=== PATIENT | female | born 1950 | race Caucasian/White ===

== ENCOUNTER → 2017-11-19 | Outpatient (REF) | payer MEDICARE ==
[2017-11-19 12:37] LABS: HEPATITIS B SURFACE ANTIBODY NEGATIVE (POSITIVE)
[2017-11-19 12:48] LABS: HEPATITIS B SURFACE ANTIGEN NEGATIVE (NEGATIVE)
[2017-11-19 13:17] LABS: HIV 1&2 SCREEN CENTAUR NEGATIVE (NEGATIVE)
[2017-11-21 00:07] LABS: HEPATITIS A IgG TOTAL Negative (Negative); HEPATITIS C QUANTITATION HCV Not Detected IU/mL (.)
== END ==
LOC: M SFHCPLAZ 09:43
DX: R76.8 Other specified abnormal immunological findings in serum (principal); F10.10 Alcohol abuse, uncomplicated; I10 Essential (primary) hypertension
CPT/HCPCS: 86706

== ENCOUNTER 2019-01-16 09:57 | Day surgery (SDC) | payer MEDICARE ==
[~2019-01-16] VITALS: Ht 157.5 cm; Wt 54.3 kg
[2019-01-16] VITALS (7 sets, daily range): BP systolic 122–140; BP diastolic 75–90
[~2019-01-16 09:57] MED LIST: ALPR0.25 PO; AMLO5CAP44 PO; BACL10TA2 PO; BUPR150T5 PO; BUSP15TA OR; CYMBALTA PO; DONE5TAB82 PO; ENAL10TA2 OR; GABA-1171 PO; LIDOCAINE 1% MDV 20ML VIAL SQ PRN; LR 1,000 ML IV ONE; MULTCAP PO; MULTIVIT PO; PANT40TA3 PO; PRIL40CA OR; QUET5TAB PO; SERT50TA29 PO; TRAZ150T OR; TRAZ150T90 PO; XANAX PO
[2019-01-16] MEDS ORDERED: fentaNYL 100 MCG/2 ML INJECTION (J3010) As Ordered ONE ×2 (11:06→13:16)
[2019-01-16] MEDS ORDERED: ONDANSETRON 4MG/2ML VIAL (J2405) As Ordered ONE (11:06)
[2019-01-16] MEDS ORDERED: MIDAZOLAM INJ 2 MG/2 ML VIAL (J2250) As Ordered ONE (11:06)
[2019-01-16] MEDS ORDERED: PROPOFOL 200 MG/20 ML VIAL As Ordered ONE ×2 (11:06→13:26)
[2019-01-16] MEDS ORDERED: LIDOCAINE 2% INJ 100 MG/5 ML SDV (FOR ANES.) As Ordered ONE (11:06)
[2019-01-16] MEDS ORDERED: ALBUTEROL SULFATE 2.5 MG/0.5 ML INH NEB SOLN As Ordered ONE (11:09)
[2019-01-16] MEDS ORDERED: ALBUTEROL SULFATE 2.5 MG/0.5 ML INH NEB SOLN INH ONE ×2 (11:30→14:15)
[2019-01-16] MEDS ORDERED: dexameTHASONE 4 MG/ML 1ML VIAL (J1100) As Ordered ONE (12:10)
[2019-01-16] MEDS ORDERED: ACETAMINOPHEN 1000MG 100ML IV BTL (OFIRMEV) (J0131 PER 10MG) As Ordered ONE (12:19)
[2019-01-16] MEDS ORDERED: KETOROLAC 60 MG/2 ML VIAL (J1885) As Ordered ONE (13:27)
[2019-01-16] MEDS ORDERED: ONDANSETRON 4MG/2ML VIAL (J2405) IV PRN (14:00)
[2019-01-16] MEDS ORDERED: LR 1,000 ML IV SCH (14:00)
[2019-01-16] MEDS ORDERED: fentaNYL 100 MCG/2 ML INJECTION (J3010) IV PRN (14:00)
[2019-01-16] MEDS ORDERED: oxyCODONE 5MG TAB PO PRN (14:00)
[2019-01-16] MEDS ORDERED: NORCO, ANEXSIA 5/325MG TABLET (HYDROcodone/ACETAMINOPHEN) PO PRN (14:00)
[2019-01-16] MEDS ORDERED: IBUPROFEN 600 MG TAB PO PRN (14:00)
[2019-01-16] MEDS: DONEPEZIL 5 MG TAB PO SCH (18:09)
[2019-01-16] MEDS: MULTIVITAMINS/MINERALS THERAP 1 TAB PO SCH (18:09)
[2019-01-16] MEDS: amLODIPine 5 MG TAB PO SCH (18:10)
[2019-01-16] MEDS: BENAZEPRIL 20 MG TAB PO SCH (18:10)
--- NOTE | 2019-01-16 18:23 | RO ---
DATE OF PROCEDURE: 01/16/2019 PREOPERATIVE DIAGNOSIS: Large vulvar lesion. POSTOPERATIVE DIAGNOSIS: Large vulvar lesion. PROCEDURE: Partial vulvectomy. SURGEON: Dr. Tiffany Dumont ELECTRICAL ENGINEERING MANAGER: None. ANESTHESIA: LMA. DESCRIPTION OF PROCEDURE: Shellie was brought to the operating room where sufficient LMA anesthesia was induced, and she was prepped, draped and positioned in the usual sterile fashion. Marker was used to brandon out the lesion, which obliterated the entire perineal body in this slightly built 68-year-old woman who already has some marked atrophic changes of the tissues and loss of caliber at the introitus. Having marked off the lesion over the perineal body with a rhomboid shape, we developed two modified rhomboid flaps, left and right so that we could take some of the tissue from the labia to take some of the pressure off this and not have too much tension on the repair. She did not have adequate tissue to just replace the tissue loss, and this is the entire perineal body and some of the posterior aspect of the labia involved in this lesion, and so we worked those rhomboid flaps so coming out from the rhomboid resection and working anteriorly to develop those flaps from the labial tissues. There really was not enough give in the buttock either because the lesion went almost all the way to the anal verge. We did angle a little bit forward rather than going straight out sideways because we did not want to take from the thighs, we needed to take from the labia. But then we resected the lesion in that rhomboid shape and dissected out the flaps, leaving a little of the underlying tissue for this patient. And then we did a modification of sort of a V-Y technique, so that we brought the perineal body closest to the anus together deeply with #3-0 to close and sort of resupport the perineal body, and redevelop this for this patient who has a fairly shortened perineal body anyway. And then brought those flaps over for the anterior aspect of this so that we would have a low tension repair using #3-0 in the skin and #2-0 Vicryl for that deep perineal body resupport. When we had the perineal body resupported and then swing those flaps over and had brought the corners in on the sides to close off where the flaps were removed, we had a low tension repair. I did some short segments of running closure and multiple interrupted stitch for most of the closure, making sure that we were secure to the vaginal tissues at the introitus and secure to the other tissues, and that we did not lose any more vaginal caliber in this still active individual. She is aware that she has to take a break from intercourse until this fully, fully heals as is her . Again, when we attacked the corners and brought those in, we had a low tension repair, we had good color on the flaps, and went ahead and closed the skin, again sort of in a modified Y shape along with that rhomboid aspect of the repair closer to the introitus. And we had good approximation and hemostasis, and then the procedure was ended. We did empty her bladder at the end of the case as well. Estimated blood loss for the procedure: Maybe 20 mL. Fluid replacement: Crystalloid. Complications: None. Condition and Disposition: Shellie tolerated the procedure well and was recovering in the recovery room in good condition.
[2019-01-16] MEDS: PANTOPRAZOLE 40MG TAB (PROTONIX) PO SCH (20:11)
[2019-01-16] MEDS: buPROPion **SR TABLET** (ZYBAN) 150MG PO SCH (20:11)
[2019-01-16] MEDS ORDERED: SERTRALINE HCL 50 MG TAB PO SCH (21:00)
[2019-01-16] MEDS ORDERED: BACLOFEN 10 MG TAB PO SCH (21:00)
[2019-01-16] MEDS ORDERED: QUEtiapine FUMARATE 50 MG TAB PO SCH (21:00)
[2019-01-16] MEDS ORDERED: traZODone 50 MG TAB PO SCH (21:00)
[2019-01-17 02:10] VITALS: BP 136/66
[2019-01-17 06:10] VITALS: BP 119/78
[2019-01-17] MEDS ORDERED: ADVI200T PO (09:04)
[2019-01-17] MEDS: PANTOPRAZOLE 40MG TAB (PROTONIX) PO SCH (09:08)
[2019-01-17] MEDS: MULTIVITAMINS/MINERALS THERAP 1 TAB PO SCH (09:08)
[2019-01-17] MEDS: buPROPion **SR TABLET** (ZYBAN) 150MG PO SCH (09:08)
[2019-01-17 09:09] VITALS: BP 138/84
[2019-01-17] MEDS: amLODIPine 5 MG TAB PO SCH (09:09)
[2019-01-17] MEDS: DONEPEZIL 5 MG TAB PO SCH (09:09)
[2019-01-17] MEDS: BENAZEPRIL 20 MG TAB PO SCH (09:09)
== END 2019-01-17 14:24 | disposition home or self-care (01) ==
LOC: M SDC 09:57 → M MSPAV 17:05 → M SDC 01-17 14:24
PROVIDERS: ATTEND Obstetrics & Gynecology
DX: D07.1 Carcinoma in situ of vulva (principal); I10 Essential (primary) hypertension; K21.9 Gastro-esophageal reflux disease without esophagitis; F41.9 Anxiety disorder, unspecified; F32.9 Major depressive disorder, single episode, unspecified; F17.218 Nicotine dependence, cigarettes, with other nicotine-induced disorders; Z79.899 Other long term (current) drug therapy
CPT/HCPCS: 56620; 88309; J0131; J1100; J1885; J2250; J2405; J3010

== ENCOUNTER → 2019-05-28 | Outpatient (REF) | payer MEDICARE ==
[~2019-05-28] MED LIST changes: +ADVI200T PO; -LIDOCAINE 1% MDV 20ML VIAL SQ PRN; -LR 1,000 ML IV ONE
[2019-05-28 19:32] LABS: MAGNESIUM LEVEL 1.8 MG/DL (1.8-2.4)
[2019-05-29 13:01] LABS: CALCIUM LEVEL 9.6 MG/DL (8.8-10.2); CREATININE FOR GFR 1.37 MG/DL (0.55-1.30); GLOMERULAR FILTRATION RATE 40.8 (>45); POTASSIUM SERUM 4.4 MEQ/L (3.5-5.1)
== END ==
LOC: M LABDRWAD 19:05
PROVIDERS: ATTEND Internal Medicine Cardiovascular Disease
DX: I51.89 Other ill-defined heart diseases (principal)

== ENCOUNTER → 2019-06-04 | Outpatient (CLI) | payer MEDICARE ==
--- NOTE | 2019-06-04 10:55 | REPVR ---
PROCEDURE INFORMATION: Exam: CT Chest Without Contrast Exam date and time: 06/04/2019 10:21 AM Age: 69 years old Clinical indication: Abnormal findings; Abnormal radiologic exam of lung or chest. TECHNIQUE: Imaging protocol: Computed tomography of the chest without contrast. 3D rendering: MIP and/or 3D reconstructed images were created by the technologist. Radiation optimization: All CT scans at this facility use at least one of these dose optimization techniques: automated exposure control; mA and/or kV adjustment per patient size (includes targeted exams where dose is matched to clinical indication); or iterative reconstruction. COMPARISON: CR CHEST (2 VIEW) X-RAY OUTSIDE PRIOR 04/25/2019 12:00 AM FINDINGS: Lungs: There are bilateral emphysematous changes. There are coarse interstitial changes bilaterally. Pleural space: Unremarkable. No pneumothorax. No pleural effusion. Heart: There are atherosclerotic changes of the coronary arteries. There is cardiomegaly. Aorta: There are calcified atherosclerotic changes of the aorta. Lymph nodes: There are multiple enlarged mediastinal lymph nodes. Spleen: There is splenomegaly. Bones/joints: Unremarkable. No acute fracture. Soft tissues: Unremarkable. IMPRESSION: 1. There are bilateral emphysematous changes. 2. There are coarse interstitial changes bilaterally. 3. There are multiple enlarged mediastinal lymph nodes. Please correlate with the presence of any known malignancy. Direct comparison to prior chest CT scan is recommended. In the absence of prior studies for comparison purposes, followup CT scan in 3 months is recommended to confirm stability of these findings. Electronically signed by: Percy Gonzalez On 06/04/2019 10:55:01 AM
== END ==
LOC: M RAD 10:05
PROVIDERS: ATTEND Internal Medicine Pulmonary Disease
DX: R91.8 Other nonspecific abnormal finding of lung field (principal); I70.0 Atherosclerosis of aorta; I25.10 Atherosclerotic heart disease of native coronary artery without angina pectoris; R16.1 Splenomegaly, not elsewhere classified

== ENCOUNTER → 2019-09-19 | Outpatient (REF) | payer MEDICARE ==
[2019-09-19 18:02] LABS: BASO # 0.1 10^3/uL (0.0-0.2); BASO % 0.9 % (0.0-1.0); EOS # 0.1 10^3/uL (0.0-0.5); EOS % 1.6 % (0.0-3.0); HEMATOCRIT 34.3 % (36.0-47.0); HEMOGLOBIN 11.6 g/dl (12.0-15.5); LYMPH # 0.9 10^3/uL (1.5-5.0); LYMPH % 9.9 % (24.0-44.0); MEAN CORPUSCULAR HEMOGLOBIN 31.6 pg (27.0-33.0); MEAN CORPUSCULAR HGB CONC 33.8 g/dl (32.0-36.5); MEAN CORPUSCULAR VOLUME 93.5 fl (80.0-96.0); MONO # 0.7 10^3/uL (0.0-0.8); MONO % 8.3 % (0.0-5.0); NEUTROPHILS # 6.9 10^3/uL (1.5-8.5); NEUTROPHILS % 78.8 % (36.0-66.0); PLATELET COUNT, AUTOMATED 279 10^3/uL (150-450); RED BLOOD COUNT 3.67 10^6/uL (4.00-5.40); WHITE BLOOD COUNT 8.7 10^3/uL (4.0-10.0)
[2019-09-19 18:30] LABS: CALCIUM LEVEL 8.9 MG/DL (8.8-10.2); CREATININE FOR GFR 1.95 MG/DL (0.55-1.30); GLOMERULAR FILTRATION RATE 27.2 (>45); POTASSIUM SERUM 5.3 MEQ/L (3.5-5.1)
== END ==
LOC: M LABDRWAD 16:47
PROVIDERS: ATTEND Internal Medicine Cardiovascular Disease
DX: I51.89 Other ill-defined heart diseases (principal)

== ENCOUNTER → 2019-09-21 | Outpatient (CLI) | payer MEDICARE | LOC: M LABSMTC 09:33 | PROVIDERS: ATTEND Internal Medicine Cardiovascular Disease | DX: Z03.818 Encounter for observation for suspected exposure to other biological agents ruled out (principal) | CPT/HCPCS: C9803; U0003 ==

== ENCOUNTER → 2019-10-13 | Outpatient (REF) | payer MEDICARE ==
[~2019-10-13] MED LIST changes: +PANT40TA29 PO; -PANT40TA3 PO
[2019-10-13 19:30] LABS: CALCIUM LEVEL 8.9 MG/DL (8.8-10.2); CREATININE FOR GFR 1.39 MG/DL (0.55-1.30); GLOMERULAR FILTRATION RATE 40.1 (>45); POTASSIUM SERUM 5.1 MEQ/L (3.5-5.1)
== END ==
LOC: M LABDRWAD 17:23
PROVIDERS: ATTEND Physician Assistant
DX: N17.8 Other acute kidney failure (principal)

== ENCOUNTER → 2019-10-22 | Outpatient (CLI) | payer MEDICARE ==
--- NOTE | 2019-10-22 13:51 | REP ---
Clinical: Follow up abnormal pulmonary findings. Technique: Axial noncontrast images from the thoracic inlet to the upper abdomen with coronal and sagittal re-formations. Comparison: 06/04/2019. Findings: Moderate subpleural fibrosis is again appreciated along with mild generalized bronchiectasis. No focal consolidation, significant nodule or mass lesion appreciated. No pleural effusion. No pneumothorax. Mildly prominent lymph nodes are again noted and unchanged. Stable atherosclerotic changes to the thoracic aorta and coronary arteries noted without aortic aneurysm. Mild cardiomegaly is again noted without pericardial effusion. Surrounding musculoskeletal structures demonstrate degenerative changes. Impression: Moderate pulmonary fibrosis. Stable cardiomegaly. Mildly prominent mediastinal lymph nodes unchanged. Electronically Signed by Aki Russell MD 10/22/2019 01:43 P
== END ==
LOC: M RAD 13:01
PROVIDERS: ATTEND Internal Medicine Pulmonary Disease
DX: R91.8 Other nonspecific abnormal finding of lung field (principal)

== ENCOUNTER → 2019-11-06 | Outpatient (CLI) | payer MEDICARE | LOC: M LABSMTC 12:30 | PROVIDERS: ATTEND Internal Medicine Cardiovascular Disease | DX: Z11.59 Encounter for screening for other viral diseases (principal) | CPT/HCPCS: C9803; U0003 ==

== ENCOUNTER → 2019-11-14 | Outpatient (REF) | payer MEDICARE ==
[2020-01-11 23:03] LABS: CREATININE FOR GFR 1.32 MG/DL (0.55-1.30); GLOMERULAR FILTRATION RATE 42.6 (>45)
== END ==
LOC: M LABDRWAD 08:43
PROVIDERS: ATTEND Internal Medicine Cardiovascular Disease
DX: R94.5 Abnormal results of liver function studies (principal)

== ENCOUNTER → 2019-12-30 | Outpatient (REF) | payer MEDICARE ==
[2019-12-30 13:14] LABS: INR 1.06
== END ==
LOC: M LABDRWAD 12:24
PROVIDERS: ATTEND Internal Medicine Cardiovascular Disease
DX: I34.0 Nonrheumatic mitral (valve) insufficiency (principal)

== ENCOUNTER → 2020-01-20 | Outpatient (CLI) | payer MEDICARE ==
--- NOTE | 2020-01-20 11:51 | REP ---
INDICATION: SOB COMPARISON: 10/22/2019, 06/04/2019 TECHNIQUE: Axial noncontrast images from the thoracic inlet to the upper abdomen with coronal and sagittal reformations. FINDINGS: Current examination demonstrates a new large possibly multiloculated right pleural collection with prominent rind. No intrinsic gas or obvious soft tissue component is identified within the collection. Underlying chronic COPD/emphysematous disease and fibrosis along with bronchiectasis again noted and unchanged. Few mildly prominent mediastinal lymph nodes including AP pretracheal lymph node measuring 13 mm short axis diameter is again identified and unchanged as well. Mediastinum demonstrates atherosclerotic changes to the thoracic aorta and coronary arteries along with mitral valve repair. No pericardial effusion. Surrounding musculoskeletal structures demonstrate age-related changes without acute osseous abnormality. Limited upper abdomen demonstrates normal bilateral adrenal glands. IMPRESSION: 1. New large possibly multiloculated right pleural collection. 2. Chronic stable parenchymal changes as described above. <Electronically signed by Aki Russell > 01/20/20 [id number]
== END ==
LOC: M RAD 11:17
PROVIDERS: ATTEND Nurse Practitioner Family
DX: R91.8 Other nonspecific abnormal finding of lung field (principal); R06.02 Shortness of breath

== ENCOUNTER → 2020-03-08 | Outpatient (CLI) | payer MEDICARE ==
--- NOTE | 2020-03-08 18:26 | REP ---
INDICATION: [id number] EFFUSION, NOT ELSEWHERE CLASSIFIED. COMPARISON: Chest CT dated 01/20/[address] dated 10/22/2019. TECHNIQUE: The current study is performed without IV contrast. FINDINGS: There is a known right loculated pleural effusion. The fusion appears to have decreased in size and is confined mainly to the right apex but extends anteriorly inferiorly slightly. The previous extension inferiorly along the right mediastinal border appears to have resolved. The collection over the right apex appears decreased in size. Chronic bilateral subpleural fibrosis is again identified, unchanged. Bilateral of mild bronchiectasis is again noted, unchanged. There are no infiltrates. No lung masses or nodules are identified. No mediastinal or axillary lymph node enlargement are identified. The study is insensitive for hilar adenopathy in the absence of IV contrast. In the upper abdomen the adrenals are unremarkable. The visualized unenhanced patent parenchyma is unremarkable. The visualized areas of the gallbladder, pancreas and spleen are unremarkable. IMPRESSION: The loculated right pleural fluid collection has decreased in size and is predominantly in the right apex with a small extension anteriorly. Subpleural fibrosis and bronchiectasis are unchanged. No adenopathy or infiltrate. <Electronically signed by Lai Marquez > 03/08/20 [id number]
== END ==
LOC: M RAD 15:40
PROVIDERS: ATTEND Thoracic Surgery (Cardiothoracic Vascular Surgery)
DX: J90 Pleural effusion, not elsewhere classified (principal)

== ENCOUNTER 2020-04-02 04:19 | Inpatient (IN) | payer MEDICARE ==
[2020-04-02] VITALS (7 sets, daily range): BP systolic 140–209; BP diastolic 68–113
[~2020-04-02] VITALS: Ht 157.5 cm; Wt 56.8 kg
[2020-04-02] MEDS: HYDROMORPHONE HCL 0.5 MG/ 0.5 ML SYRINGE (J1170 PER 1) IV PRN ×2 (05:14→15:35)
[2020-04-02 05:48] LABS: BASO # 0.1 10^3/uL (0.0-0.2); BASO % 0.3 % (0.0-1.0); EOS % 0.1 % (0.0-3.0); HEMATOCRIT 32.9 % (36.0-47.0); HEMOGLOBIN 11.2 g/dl (12.0-15.5); LYMPH # 0.6 10^3/uL (1.5-5.0); LYMPH % 3.2 % (24.0-44.0); MEAN CORPUSCULAR HEMOGLOBIN 32.2 pg (27.0-33.0); MEAN CORPUSCULAR VOLUME 94.5 fl (80.0-96.0); MONO # 0.9 10^3/uL (0.0-0.8); MONO % 4.6 % (0.0-5.0); NEUTROPHILS # 17.1 10^3/uL (1.5-8.5); NEUTROPHILS % 91.2 % (36.0-66.0); PLATELET COUNT, AUTOMATED 305 10^3/uL (150-450); RED BLOOD COUNT 3.48 10^6/uL (4.00-5.40); WHITE BLOOD COUNT 18.7 10^3/uL (4.0-10.0)
[2020-04-02 05:57] LABS: INR 0.92; PROTHROMBIN TIME 12.5 SECONDS (12.5-14.3)
[2020-04-02 05:58] LABS: PARTIAL THROMBOPLASTIN TIME 43.6 SECONDS (24.2-38.5)
[2020-04-02] MEDS ORDERED: MAALOX 30 ML SUSP *UDC PO PRN (06:00)
[2020-04-02] MEDS ORDERED: ceFAZolin SOD 2 GM in IV 1 EA IV SCH (06:00)
[2020-04-02] MEDS ORDERED: MOM 30ML SUSPENSION UDC PO PRN (06:00)
[2020-04-02] MEDS ORDERED: ACETAMINOPHEN TAB 650MG DOSE (2X325MG) PO PRN (06:00)
[2020-04-02 06:18] LABS: BLOOD UREA NITROGEN 19 MG/DL (7-18); CARBON DIOXIDE LEVEL 22 MEQ/L (21-32); CHLORIDE LEVEL 99 MEQ/L (98-107); CREATININE FOR GFR 0.97 MG/DL (0.55-1.30); GLOMERULAR FILTRATION RATE > 60.0 (>45); GLUCOSE, FASTING 145 MG/DL (70-100); POTASSIUM SERUM 3.8 MEQ/L (3.5-5.1); SODIUM LEVEL 130 MEQ/L (136-145)
[2020-04-02 06:19] LABS: CALCIUM LEVEL 8.6 MG/DL (8.8-10.2)
[2020-04-02] MEDS ORDERED: LORazepam 2 MG TAB PO PRN (06:30)
[2020-04-02] MEDS ORDERED: THIAMINE 100 MG TAB PO SCH (06:31)
--- NOTE | 2020-04-02 06:31 | HPEPDOC ---
[facility] Medical History & Physical Date of Admission Apr 02, 2020 Date of Service: Apr 02, 2020 History and Physical CHIEF COMPLAINT: Hip Pain HISTORY OF PRESENT ILLNESS: 69 yo F hx of GERD, HTN, Anxiety/depression, ?mechanical heart valve (based on CXR in ED), ?COPD, likely alcohol abuse presenting to the ED due to a fall at home earlier today while walking down the stairs. She states this was a mechanical fall, as she slipped. Denies any loss of consciouness, head trauma, preceding dizziness, limb weakness, or intoxica tion from drugs/alcohol. Notes she fell on her buttocks and unsure if she braced herself with her hands. Notes pain is 10/10, constant, non-radiating and denies any urinary/fecal incontinence or loss of sensation. Denies chest pain, SOB, fevers, chills, nausea, vomiting, diarrhea. In the ED, patient presenting with stable vitals but BP although initally normotensive, progressed to 191/79. Labs significant for elevated WBC of 18.7, with normocytic anemia (hb 11.2 with mcv 94.5). CMP pending. Coags significant for slightly elevated APTT of 43.6. Right hip x-ray showing intertrochanteric fracture and CXR showing signs of mechanical heart valve (unconfirmed by radiologist). Received Dilaudid in ER. Dr. Carmen aware and will see patient in the AM. PAST MEDICAL HISTORY: 1. GERD 2. HTN 3. Anxiety/Depression PAST SURGICAL HISTORY: 1. Appendectomy SOCIAL HISTORY: Smoked 4-5 cigs/day for 25 years. Drinks 1-2 shots of vodka/day. Denies drug use. lives with at home ALLERGIES: Please see below. REVIEW OF SYSTEMS: 10 point systems review performed and negative except above. HOME MEDICATIONS: Please see below. PHYSICAL EXAMINATION: Constitutional: Appears depressed. In mild distress. Awake and alert HEENT: Left eye blindness, right eye SANTOS, although sluggish. EOMI bilaterally Cardiovascular: HS 1+ 2 normal with no added sounds or murmurs. HR 99 as per recorded vital signs Respiratory: Clear to auscultation bilaterally Abdomen: Soft, non-distended. BS+. Non-tender to palpation Extremities: DP pulses 2+ in bilateral feet. No-pitting edema. Neurological: AO x 3. Sensation intact in bilateral lower extremities. Hoisting Pile Driving Engineer strength 5/5 in bilateral hands. No gross FND. ROM in legs not assessed LABORATORY DATA: See below. IMAGING: Hip x-ray. Radiologist report not out. Showing right intertrochanteric hip fracture. MICROBIOLOGY: Please see below. ASSESSMENT/Plan: 69 yo F hx of GERD, HTN, Anxiety/depression, ?mechanical heart valve (based on CXR in ED), ?COPD, likely alcohol abuse presenting to the ED due to a fall at home earlier today while walking down the stairs. She states this was a mechanical fall, as she slipped. Hip X-ray in ED showing right intertrocha nteric hip fracture. Patient will be admitted for further management. #Right intertrochanteric hip fracture -As per hip X-ray. Pending final read by radiologist -Pain control with tylenol PRN, NORCO and morphine. Colace for bowel regimen, with milk of mag PRN -Unclear history of heart condition. Will need to obtain records from [facility] in order to get clearance for surgery. -NPO for now in anticipation of possible surgery. RVP and COVID test ordered. ECG ordered for QTC and pre-op clearance -Dr. Carmen aware and will see patient in AM -PT/OT consulted #Hypertensive urgency -While in ED, BP progressed to 191/79. Likely 2/2 Pain -c/w patients home medication: coreg 9.375 BID, norvasc 5, hydralazine 50 q8h #Leukocytosis -Likely reactive rather than infectious as patient is without symptoms and afebrile -Follow up UA, CXR, Blood cultures. Blood calcitonin will be ordered -Trend #Heart failure?/ Mechanical heart valve (based on prelim CXR reading) -Clinically euvolemic. No ECHO in file. 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 Will hold for now until records are obtained. -Will need to obtain records prior to surgery #Anxiety/Depression? -c/w home medication sertraline 50 daily. Trazodone held as not on formulary #GERD -home med protonix 40 BID as per patient since Dec 2019. Will start daily dosing as BID not indicated #Normocytic anemia -Will obtain B12, folate, iron panel to check for mixed picture -C/W home med iron 324 mg BID + Vitamin C 500 daily #Memory Loss -Likely 2/2 alcohol use/smoking -C/W Home medication donepezil 5 mg qhs. Follow up QTC before restarting #Alcohol abuse -As per patient, drinks 1-2 shots of vodka/day -Will place on CIWA protocol as unreliable historian. Ativan PRN for withdrawal -C/w home medication Multivitamin, Vit B1, folic acid #COPD -Home medication: Trelegy ellipta -While in hospital, will replace with duonebs PRN with scheduled fluticasone instead as elipta not on formulary DVT PPX: SCDs Diet: NPO in anticipation for surgery Dispo: PT/OT consulted Case discussed with Dr. Jacqui Ramey MD Hospitalist resident Vital Signs Vital Signs Date Time Temp Pulse Resp B/P (MAP) Pulse Ox O2 Delivery O2 Flow Rate FiO2 04/02/20 06:04 99 98 04/02/20 06:01 188/82 (117) 04/02/20 05:14 20 Room Air 04/02/20 04:38 97.1 Laboratory Data Labs 24H Laboratory Tests 2 04/02/20 05:11: Immature Granulocyte % (Auto) 0.6, Neutrophils (%) (Auto) 91.2H, Lymphocytes (%) (Auto) 3.2L, Monocytes (%) (Auto) 4.6, Eosinophils (%) (Auto) 0.1, Basophils (%) (Auto) 0.3, Neutrophils # (Auto) 17.1H, Lymphocytes # (Auto) 0.6L, Monocytes # (Auto) 0.9H, Eosinophils # (Auto) 0.0, Basophils # (Auto) 0.1, Nucleated Red Blood Cells % (auto) 0.0, Prothrombin Time 12.5, Prothromb Time International Ratio 0.92, Activated Partial Thromboplast Time 43.6H CBC/BMP Laboratory Tests 04/02/20 05:11 Home Medications Scheduled Amlodipine Besylate (Norvasc) 5 Mg Tablet, 5 MG PO DAILY Ascorbic Acid (Vitamin C) 500 Mg Tablet, 500 MG PO DAILY Carvedilol (Carvedilol) 6.25 Mg Tablet, 9.375 MG PO BID Clopidogrel Bisulfate (Clopidogrel) 75 Mg Tablet, 75 MG PO DAILY Ferrous Gluconate (Ferrous Gluconate) 324 Mg Tablet, 324 MG PO BID Folic Acid (Folic Acid) 1 Mg Tablet, 1 MG PO DAILY Hydralazine HCl (Hydralazine HCl) 50 Mg Tablet, 50 MG PO Q8H Sertraline HCl (Sertraline HCl) 50 Mg Tablet, 100 MG PO DAILY Thiamine Hcl (Vitamin B-1) 100 Mg Tablet, 100 MG PO DAILY Trazodone HCl (Trazodone HCl) 150 Mg Tablet, 150 MG PO QHS Miscellaneous Medications [Patient Comment] MED REC COMPLETED VIA CALL TO PHARMACY AND PREVIOUS DISCHARGE FROM ANOTHER HOSPITAL Allergies Coded Allergies: No Known Allergies (Verified , 04/02/20) A-FIB/CHADSVASC A-FIB History Current/History of A-Fib/PAF?: No GME ATTESTATION GME ATTESTATION My faculty preceptor for this patient encounter was physically present during the encounter and was fully available. All aspects of the patient interview, examination, medical decision making process, and medical care plan development were reviewed and approved by the faculty preceptor. The faculty preceptor is aware and concurs with the plan as stated in the body of this note and will attest to such by his/her cosignature. ATTENDING NOTE I, A Yousef, have independently examined this patient and performed my own physical exam, as well as reviewed the documentation and edited where necessary. I have discussed in detail with the resident / student the findings and plan of treatment as documented by the resident / student and edited their note. I agree with their findings and treatment plan and have edited their documentation. I will continue to follow the patient during this hospital stay. The history regarding her anticoagulation and compliance is unclear. She denies any medical problems or surgeries, however her list of medications from recent hospital discharge shows otherwise. She's on xarelto and plavix (previosuly on warfarin), exact indication is not clear and patient is a very poor historian. This might be releated to a heart valve replacement but she's unable to confirm to me. I would suggest obtaining records from [facility] in the morning or speaking with her open hearth helper to find out what she's anticogulated for and if it's safe to stop this for possible hip fx surgery. A likely mechnical valve is seen on her CXR. Depending on when the valve surgery was she may required cardiology clearance for possible ortho surgery with regards to her anticoagulation. Her compliance with medications is also questionable, she tells me she hasn't taken any medications in a few days but doesn't know how long. I did not restart her 9am anticogulants until history is better verified. She had leukocytosis of 18.7 but denies any fevers or chills. Unclear if this is reactive or infectious. Follow-up on chest x-ray and urinalysis as well as blood cultures. Follow-up blood calcitonin. This is isolated leukocytosis with no other symptoms. She endorses being a daily alcohol drinker and will be placed on CIWA protocol. GME ATTESTATION GME ATTESTATION My faculty preceptor for this patient encounter was physically present during the encounter and was fully available. All aspects of the patient interview, examination, medical decision making process, and medical care plan development were reviewed and approved by the faculty preceptor. The faculty preceptor is aware and concurs with the plan as stated in the body of this note and will atte st to such by his/her cosignature. ATTENDING NOTE I spoke with the Fran who tells me shes just been progressively getting worse over the past 10 years since his known her weaker and has a drop foot and doesnt use her cane often. He is worried that she takes too much of her opiates for her back pain. Regarding her mumbling difficult to understand speech she says she has no teeth and even he has a hard time understanding her most of the time so he doesnt think that this is different from her baseline. RAVI RAMEY M.D.,PGY-2 Apr 02, 2020 06:31 ROSA MARIA BROWN MD Apr 02, 2020 06:43
--- NOTE | 2020-04-02 06:32 | REPVR ---
PROCEDURE INFORMATION: Exam: XR Right Hip with Pelvis when Performed Exam date and time: 04/02/2020 5:15 AM Age: 69 years old Clinical indication: Hip pain; Right hip; Additional info: Fall, hip pain TECHNIQUE: Imaging protocol: XR Right hip with pelvis when performed. Views: 2 or 3 views. COMPARISON: No relevant prior studies available. FINDINGS: Bones/joints: Comminuted displaced right femoral intertrochanteric fractures. Moderate degenerative joint disease. Soft tissues: Unremarkable. Intraperitoneal space: Clips overlapping the right pelvis. Other findings: Small amount of free fluid. IMPRESSION: 1. Small amount of free fluid. 2. Comminuted displaced right femoral intertrochanteric fractures. Electronically signed by: Ja Ramos On 04/02/2020 06:32:31 AM
--- NOTE | 2020-04-02 06:33 | REPVR ---
PROCEDURE INFORMATION: Exam: XR Chest, 1 View Exam date and time: 04/02/2020 5:15 AM Age: 69 years old Clinical indication: Pre-operative exam; Respiratory screening exam; Additional info: Preop TECHNIQUE: Imaging protocol: XR of the chest Views: 1 view. COMPARISON: CT Chest without contrast 2020-03-08 16:28 FINDINGS: Lungs: Moderate pulmonary artery enlargement. Mild peripheral lung interstitial thickening, question mild pulmonary fibrosis. Pleural space: Unremarkable. No pleural effusion. No pneumothorax. Heart/Mediastinum: See "Vasculature" finding. Vasculature: Aortic prosthetic heart valve. Bones/joints: Unremarkable. Other findings: Right apical loculated effusion or empyema is unchanged. IMPRESSION: Right apical loculated effusion or empyema is unchanged. Electronically signed by: Ja Ramos On 04/02/2020 06:33:54 AM
[2020-04-02] MEDS ORDERED: NORV5TAB PO (06:50)
[2020-04-02] MEDS ORDERED: FOLI1TAB11 PO (06:50)
[2020-04-02] MEDS ORDERED: CARV6.25 PO (06:50)
[2020-04-02] MEDS ORDERED: THIA100TA PO (06:50)
[2020-04-02] MEDS ORDERED: HYDR50TA PO (06:50)
[2020-04-02] MEDS ORDERED: TRAZ150T90 PO (06:50)
[2020-04-02] MEDS ORDERED: SERT50TA29 PO (06:50)
[2020-04-02] MEDS ORDERED: CLOP75TA2 PO (06:50)
[2020-04-02] MEDS ORDERED: FERR32TA PO (06:50)
[2020-04-02] MEDS ORDERED: C 50TAB PO (06:50)
[2020-04-02] MEDS ORDERED: PATIENT COMMENT (06:51)
[2020-04-02] MEDS ORDERED: IPRATROPIUM 0.5MG/ALBUTEROL 2.5MG INH SOL UD 3ML (DUONEB) NEB PRN (07:00)
[2020-04-02 07:02] LABS: RSV AMPLIFICATION NEGATIVE (NEGATIVE)
[2020-04-02] MEDS ORDERED: NORCO, ANEXSIA 5/325MG TABLET (HYDROcodone/ACETAMINOPHEN) PO PRN (07:15)
[2020-04-02] MEDS ORDERED: FLUTICASONE HFA 44 MCG 10.6GM INHALER (FLOVENT) INH SCH (08:00)
[2020-04-02] MEDS: MORPHINE 2 MG/ML 1ML VIAL (J2270) IV PRN ×3 (08:31→17:21)
--- NOTE | 2020-04-02 08:39 | HPE ---
HISTORY AND PHYSICAL DATE OF ADMISSION: 04/02/2020 CHIEF COMPLAINT: Right intertrochanteric hip fracture. HISTORY OF PRESENT ILLNESS: This is a 69-year-old female who had a fall late last evening/this morning on April 02, 2020. She slipped down some steps and fell. She is unable to ambulate. She is brought into the ED. I was called by the QNP for right sided intertrochanteric hip fracture. She is not complaining about any chest pain or shortness of breath. She did not lose consciousness or have any head injury. She is pending clearance due to having valve replacement in the past. PAST MEDICAL HISTORY: Per the Hospitalist consult notes. GERD, hypertension, anxiety, depression, as well as possible mitral valve replacement done at [facility] by apparently her christian education director, Dr. Ivan. She sees Dr. Sharri Rollins in [place] as well. Alcohol abuse. MEDICATIONS: 1. Amlodipine. 2. Carvedilol. 3. Clopidogrel. 4. Ferrous sulfate. 5. Folic acid. 6. Hydralazine. 7. Sertraline. 8. Thiamine. 9. Trazodone. ALLERGIES: No known drug allergies. SOCIAL HISTORY: She smokes 4-5 cigarettes a day. She drinks 1-2 shots of vodka a day. Denies drug use. Lives at home with her . She is an independent ambulator. Her 's name is Bari. PHYSICAL EXAMINATION: GENERAL: An alert 69-year-old female. She is a little bit somnolent and easily arousable. She is alert and oriented. EXTREMITIES: No obvious deformity to the right hip. No obvious overlying muscle deformity or atrophy. Slight external rotation of right lower extremity. Normal sensation and motor function of the foot. Strong dorsalis pedis pulse. Foot was well-perfused. Normal sensation of the foot in the dorsum and plantar aspects. LABORATORY DATA: Hemoglobin of 11.2. PT 12.5, INR 0.92, APTT 43.6. COVID negative. Radiographs of the right hip reveal a three part displaced intertrochanteric hip fracture. This is imaged to approximately the mid aspect of the femur. ASSESSMENT AND PLAN: This 69-year-old female has a right sided intertrochanteric hip fracture. This is recommended for surgery. We discussed the pros and cons, risks, benefits and nonoperative care, the risks of open reduction internal fixation in the form of long intramedullary nail. The surgical risks include but are not limited to infection, pain, stiffness, limp, neurovascular injury, damage to surrounding structures, delayed mal or nonunion, hardware failure, need for further surgery, anesthetic complications, blood clots, and other risks as well as need for further surgeries. She wished to go ahead for surgery as well as possible need for blood products and explained the pros, cons, risks and benefits of that as well to her including but not limited to infection, bacterial viruses, fever, and allergic reaction. She wished to undergo for possible need for transfusion and she signed the consent form for that as well. I marked the right lower extremity. I communicated directly to Dr. Mi as well as called the patient's , Bari, talked to him about what was apparently mitral valve replacement and we will wait on the Hospitalist/possible christian education director clearance to go ahead with surgery. For now, we will maintain the patient NPO status in preparation for surgery. Her and her had no further questions. I will await medical clearance as soon as possible.
[2020-04-02 08:49] LABS: PERCENT SATURATION 27.5 % (13.2-45.0)
[2020-04-02] MEDS ORDERED: DOCUSATE SODIUM 100MG CAPSULE PO SCH (09:00)
[2020-04-02] MEDS ORDERED: PANTOPRAZOLE 40MG TAB (PROTONIX) PO SCH ×2 (09:00)
[2020-04-02] MEDS ORDERED: MULTIVITAMINS/MINERALS THERAP 1 TAB PO SCH (09:00)
[2020-04-02] MEDS ORDERED: amLODIPine 5 MG TAB PO SCH (09:00)
[2020-04-02] MEDS ORDERED: DONEPEZIL 5 MG TAB PO SCH (09:00)
[2020-04-02] MEDS ORDERED: SERTRALINE HCL 50 MG TAB PO SCH (09:00)
[2020-04-02] MEDS ORDERED: FOLIC ACID 1 MG TAB PO SCH (09:00)
[2020-04-02] MEDS ORDERED: ASCORBIC ACID 500 MG TAB PO SCH (09:00)
[2020-04-02] MEDS ORDERED: CARVedilol 6.25 MG TAB PO SCH ×2 (09:00→21:00)
[2020-04-02] MEDS ORDERED: FERROUS GLUCONATE 324 MG TAB PO SCH (09:00)
[2020-04-02] MEDS ORDERED: hydrALAZINE 20MG/ML 1ML VIAL (J0360 PER 20MG) IV PRN (09:30)
--- NOTE | 2020-04-02 09:45 | IPN ---
PROGRESS NOTE DATE: 04/02/2020 SUBJECTIVE: Shellie is seen in the Emergency Room. She is admitted with a right hip fracture. Her case was complicated by lack of comprehensive medical history. The patient is incredibly vague about her medical history, provides almost no significant details. We did determine through her that Dr. Ivan was her label stamper. I called [facility] and spoke to Dr. Garcia who was auctioneer art today who graciously looked up her records for me and determined that in December 2019 the patient a mitral valve replacement with a Magna pericardial mitral valve. I do not think the patient has been seen since then. We do not know who her outpatient label stamper is. PAST MEDICAL HISTORY: She has a history of alcoholism with daily alcohol use, anxiety and depression, hypertension, GERD. Medical record reconciliation led to further confusion in that she has been prescribed warfarin but obviously is not taking it; INR is 0.92. It looks like she was given a prescription for Xarelto but I do not think she ever picked that up. She is currently reportedly taking Plavix or Brilinta (discrepancy on this from med reconciliation). Patient has no idea what medicines she is taking. She denies chest pain, shortness of breath, palpitations, epistaxis, rectal bleeding or urinary bleeding. PHYSICAL EXAMINATION: VITAL SIGNS: Blood pressure 205/109, pulse is 95. GENERAL APPEARANCE: She is alert, conversant, in no distress. LUNGS: Clear. HEART: Regular rate and rhythm. No murmur. ABDOMEN: Soft, nontender. No masses. EXTREMITIES: No peripheral edema. Decreased pulses in feet but still palpable. IMAGING: X-rays shows comminuted displaced right femoral intertrochanteric fracture. IMPRESSION: 1. Right hip fracture. Plan is for surgical correction once cleared by Cardiology. 2. Recent mitral valve replacement. Does not have a mechanical mitral valve. Appreciate Dr. Garcia's assistance in sorting out her valve situation. I spoke with Dr. Rabago who is auctioneer art for Cardiology. He will see her in consultation for preop evaluation. If she is taking antiplatelet medications such as Plavix or Brilinta we might have to wait a few days before she goes to surgery, unfortunately I have no way of knowing if she is actually taking these. Her compliance with other meds is poor. 3. Hypertension, blood pressure is significantly elevated in the Emergency Room at this time and will address this by adding some IV Hydralazine to her regimen. 4. Alcoholism. She is on CIWA protocol. I have ordered folic acid and multivitamin. 5. History of depression, she apparently takes Sertraline at home and will continue this to avoid SSRI withdrawal syndrome. The case was discussed with Dr. Rabago and Dr. Carmen from Orthopedics.
[2020-04-02] MEDS: **hydrALAZINE** 50 MG TAB PO SCH ×2 (11:17→16:46)
[2020-04-02] MEDS ORDERED: KCL 20MEQ IN D5/0.45NS 1000ML 1,000 ML IV SCH (16:00)
[2020-04-02] MEDS ORDERED: ALBUTEROL SULFATE 2.5 MG/0.5 ML INH NEB SOLN NEB SCH (16:00)
[2020-04-02] MEDS ORDERED: HEPARIN DRIP 25,000 UNITS in IV 1 EA IV SCH ×4 (16:28)
[2020-04-02] MEDS ORDERED: HEPARIN SOD (PORCINE) 5000UNITS/ML 1ML VIAL/SYRINGE IV PRN (16:30)
--- NOTE | 2020-04-03 08:03 | DSES ---
DISCHARGE SUMMARY DATE OF ADMISSION: 04/02/2020 DATE OF DISCHARGE/TRANSFER: 04/02/2020 PRINCIPAL DIAGNOSIS: Comminuted displaced right femoral intertrochanteric fracture. SECONDARY DIAGNOSES: 1. Recent placement of drug eluting stent in unspecified coronary artery 11/2019. 2. Recent mitral valve replacement 12/2019. 3. Hypertension, probably secondary to noncompliance. 4. Alcoholism. 5. History of depression. HISTORY: Shellie Braun was admitted with a comminuted displaced right femoral hip fracture. Plan was for surgical correction. Unfortunately, the patient could provide no reasonable medical history. However, through the efforts of Dr. Garcia at [facility] and Dr. Rabago from [facility] in [place] it was pieced together that she has a relevant recent past cardiologic history with a drug eluting stent placed in unspecified coronary artery 11/2019 and then a mitral valve replacement via prosthetic valve 12/2019. She is supposed to be on Brilinta for at least six months, preferably a year, after the drug eluting stent. Consultation was placed with Dr. Rabago. He saw her in consultation and felt that she is at significant risk of stent thrombosis by interruption of her Brilinta therapy (which she may have already interrupted through noncompliance, we do not have a way to tell that right now). He reached out to [facility] and arranged transfer to the hospitalist service there for cardiologic care during her surgery. Her blood pressure was significantly elevated to 200/100 at times. She received IV hydralazine in addition to an oral regimen. SIGNIFICANT LABORATORY DATA: Today, white count is 18.7, hemoglobin 11.2, platelets 305, sodium 130, potassium 3.8, BUN 19, creatinine 0.7, TIBC low at 233, ferritin high at 529, B12/folate pending, INR 0.92. Blood alcohol initial was undetectable. Urinalysis was ordered on admission, she looks to have 2+ leukocyte esterase and 3+ bacteria. She will need perioperative antibiotic therapy that will also provide empiric coverage for urinary tract infection (UTI). Her COVID screen was negative. CURRENT MEDICATIONS: - Ativan 2 mg as needed - Ramona every 6 hours as needed - morphine sulfate 2 mg IV every 4 hours as needed - heparin drip, dose adjusted by PTT - albuterol nebulizer 2.5 mg every 4 hours - hydralazine 50 mg every 8 hours - she is currently receiving potassium runs intravenously - hydralazine 10 mg every 4 hours as needed - folic acid 1 mg daily - multivitamin daily - Colace daily - thiamine 100 mg daily - Protonix 40 mg daily - amlodipine 5 mg daily - sertraline 100 mg daily - she is also on ferrous gluconate as an outpatient but with the iron studies having returned showing anemia of chronic disease and iron deficiency I think these can safely be discontinued The patient is being transferred to [facility]. I appreciate Dr. Rabago and Dr. Garcia's efforts in providing some light on this patient's important cardiologic history.
--- NOTE | 2020-04-03 11:26 | CR ---
CONSULTATION DATE: 04/02/2020 REFERRING PHYSICIAN: Arron Mi MD REASON FOR CONSULTATION: Preop cardiac evaluation. HISTORY OF PRESENT ILLNESS: 69-year-old woman fell at home when going on the stairs without any loss of consciousness. She could not get up. She was brought to the ER at [facility] for further evaluation and she was found to have a right hip fracture, intertrochanteric fracture. Her chest x-ray revealed findings consistent with heart valve surgery and it was noted that she is on Plavix as well as other cardiac meds. Cardiology consult was called. Her hospitalist has found out that she had mitral valve replacement earlier this year with a bioprosthetic aortic valve. On seeing Mrs. Shellie Garcia this afternoon, she was in supine bed in no acute distress and her nurse was at bedside. She denies any chest pain or associated palpitations at the time. She has no orthopnea or PND. She did not pass aorta. Currently, she is complaining of pain at the level of the right lower extremity particularly at the level of the right hip. She is not coughing. She has no nausea or vomiting, diarrhea, melena or hematemesis. Her cardiac condition started last year, 2019, she was found to have severe mitral regurgitation with a normal LVEF. She was referred for a cardiac catheterization that revealed a 90% stenosis, 80-90% stenosis in the proximal RCA as well as 50% stenosis in the proximal to mid LCX and mid RCA. The patient had drug-eluting stent to the proximal RCA in the middle of November of 2019, 11/11/2019. She came back to [facility] on 12/18/2019 and had attempted mitral valve repair that was followed with mitral valve replacement with a bioprosthetic pericardial mitral valve, Magna #29 mm via a right thoracotomy approach. It seems that since from that surgery, she has been stable from a cardiac point of view and she usually sees Dr. Rollins as her lode miner blasting in [place], [place]. PAST MEDICAL HISTORY: As mentioned above for coronary artery disease with PTCA/BAILEY to the proximal RCA, mitral valve repair/replacement in December of 2019, hypertension, hyperlipidemia, COPD for which she is seeing Dr. Neil as her air brake tester, mild dementia which is thought to be related to her history of alcoholism, anxiety/depression, smoking. She had an echocardiogram done on 12/18/2019 and it revealed a normal LVEF estimated at 60%. There is no known history of atrial fibrillation/flutter, TIA/CVA, diabetes mellitus, thyroid disorders. She does have a history of glaucoma and heart failure related to diastolic dysfunction. PAST SURGICAL HISTORY: Positive for , vulvectomy, appendectomy, and mitral valve repair/replacement. FAMILY HISTORY: Noncontributory. SOCIAL HISTORY: The patient lives with her and she smokes less than 10 cigarettes a day and she has 1-2 shots of vodka daily. There is no report of ETOH abuse. Prior to her fall, she has been independent. ALLERGIES: No known drug allergies. CODE STATUS: THE PATIENT IS A FULL CODE. PHYSICAL EXAMINATION: Patient is alert and oriented, in no acute distress at rest and hers vital signs when I saw her revealed a blood pressure of 160/84 and prior to that, it was up to 200/94 with a pulse of 117, respirations 18 and oxygen saturation on two liters nasal cannula was 95-97%. Her temperature is 97.7 degrees Fahrenheit. Examination of the head: Atraumatic. Neck is supple and no JVD appreciated. Lungs reveal minimal wheezing but no crackles. Heart examination revealed irregular heart sounds, tachycardic. The PMI is not displaced. There is no rub. Abdomen is soft and nontender. Bowel sounds are active. No bruits. Extremities reveal no pedal edema. Peripheral pulses, dorsalis pedis +2. Neurologic examination was limited but patient was able to move her upper extremities. MEDICATIONS: Amlodipine 5 mg p.o. twice a day, hydralazine 50 mg p.o. q.8 hours, pantoprazole 4 mg p.o. daily, donepezil 5 mg p.o. daily, Sertraline 100 mg p.o. daily, iron supplement 324 mg p.o. twice a day, carvedilol 9.75 mg p.o. twice a day, vitamin C, folic acid, docusate sodium, IV hydralazine as needed 10 mg q.4 hours p.r.n., D5 normal saline with potassium supplement going at 80 mL an hour, Flovent as needed, Hydrocodone as needed for pain, morphine sulfate as well needed for pain, thiamine 100 mg p.o. b.i.d., lorazepam 2 mg per protocol, magnesium oxide as needed, 30 mL, dilaudid 0.5 mg IV every 30 minutes as needed for moderate to severe pain. MEDICATIONS AT HOME: Amlodipine, carvedilol, Plavix, ferrous sulfate, folic acid, hydralazine, Sertraline, thiamine, trazodone. It as reported also patient at one point was taking Brilinta. LABORATORY DATA: CBC revealed a WBC of 18.7, hemoglobin 11.2, hematocrit 32.9 and platelets 305,000. BMP revealed a sodium of 130, potassium 3.8, chloride 99, CO2 22, BUN 19, creatinine 0.97 and GFR greater than 60, fasting glucose 145, calcium 8.6. Serum iron was 64. Procalcitonin was less than 0.05. Serum alcohol, ethyl alcohol was less than 0.003. PT was 12.5 with an INR of 0.92 and a PTT of 43.6. Urinalysis is positive for blood, protein, 2+ leukocyte esterase, WBCs, RBCs and 3+ bacteria. SARS for COVID-19 was negative. Influenza A and B also were negative as well as RSV. Chest x-ray done on admission on 04/02/2020 revealed a right apical loculated effusion and empyema and this is unchanged from prior studies. Hip x-ray on the right revealed comminuted displaced right femoral intertrochanteric fracture. EKG revealed a normal sinus rhythm. IMPRESSION: A 69-year-old woman with a history of PTCA/BAILEY to the proximal RCA done in November of 2019 followed by mitral valve replacement in December 2019 and multiple comorbid conditions such as hypertension, hyperlipidemia, COPD, smoking, anxiety/depression, mild dementia that was thought to be related to chronic alcoholism, fell when going down the stairs earlier today in the middle of the night and was brought to the ER for further evaluation because she could not walk and she was found to have an intertrochanteric right hip fracture. She needs surgery. The patient also states she takes her cardiac meds and her other medications regularly but according to the pharmacy, it does not seem she was renewing regularly her meds. She has been on Plavix or Brilinta. The patient is at risk to develop in-stent restenosis and for this reason, it would be safer for her surgery to be done in a facility where there is an invasive team if there is any need for urgent intervention. The case was discussed with [facility] and they have agreed to accept and admit the patient. Dr. Joseph will be the admitting physician. I also discussed the case with her Hospitalist at [facility] and her orthopedist. They are in agreement. Patient also was made aware. She was started on IV Heparin and she will need to be on a daily aspirin daily. Prior to her transfer, I have increased her beta enzo. Upon discharge, she will continue to follow-up with her primary lode miner blasting in [place], Dr. Rollins. Thank you for asking me to participate in the care of . Shellie Braun for her underlying cardiac condition. She is at this time stable for her transfer to [facility]. MIKAL
--- NOTE | 2020-04-03 20:05 | ECGEPIP ---
[facility] Test Date: 2020-04-02 Pat Name: LOWELL GARCIA Department: Room: [place] [address] Gender: Female Splunk Architect: MARISA : 1950 Requested By: RAVI Guardado PGY-2 Order Number: [id number] Reading MD: De Carias Measurements Intervals [place] Rate: 85 P: 49 TX: 172 QRS: 5 QRSD: 85 T: 45 QT: 384 QTc: 458 Interpretive Statements Normal sinus rhythm with sinus arrhythmia Left atrieal enlargement Comparison tracing not on file Electronically Signed on 04-03-2020 20:04:58 EST by De Carias
[2020-04-05 10:49] LABS: FOLATE 17.9 NG/ML (>5.4)
== END 2020-04-02 19:35 | disposition short-term general hospital (02) | DRG 536 ==
LOC: M ED 04:19 → EEVIPCON 05:47 → M ED INP 05:47 → ENRESERV 06:02 → M MS5PR 08:24 → M PCU 15:17
PROVIDERS: ADMIT Family Medicine; ATTEND Family Medicine
DX: S72.141A Displaced intertrochanteric fracture of right femur, initial encounter for closed fracture (principal); I10 Essential (primary) hypertension; Z91.14 Patient's other noncompliance with medication regimen; Z95.2 Presence of prosthetic heart valve; F10.20 Alcohol dependence, uncomplicated; Z79.899 Other long term (current) drug therapy; F32.9 Major depressive disorder, single episode, unspecified; F41.9 Anxiety disorder, unspecified; I16.0 Hypertensive urgency; D72.829 Elevated white blood cell count, unspecified; J44.9 Chronic obstructive pulmonary disease, unspecified; W10.9XXA Fall (on) (from) unspecified stairs and steps, initial encounter; Y92.009 Unspecified place in unspecified non-institutional (private) residence as the place of occurrence of the external cause; F17.210 Nicotine dependence, cigarettes, uncomplicated; D64.9 Anemia, unspecified; E78.5 Hyperlipidemia, unspecified; F03.90 Unspecified dementia, unspecified severity, without behavioral disturbance, psychotic disturbance, mood disturbance, and anxiety

== ENCOUNTER → 2020-06-19 | Outpatient (CLI) | payer MEDICARE ==
[~2020-06-19] MED LIST changes: +C 50TAB PO; +CARV6.25 PO; +CLOP75TA2 PO; +FERR32TA PO; +FOLI1TAB11 PO; +HYDR50TA PO; +NORV5TAB PO; +PATIENT COMMENT; +QUET50TA3 PO; -QUET5TAB PO; +THIA100TA PO
== END ==
LOC: M LABSMTC 08:36
PROVIDERS: ATTEND Orthopaedic Surgery
DX: Z01.818 Encounter for other preprocedural examination (principal); M25.551 Pain in right hip; Z20.822 Contact with and (suspected) exposure to COVID-19

== ENCOUNTER 2021-04-07 16:43 | Inpatient (IN) | payer MEDICARE ==
[2021-04-07] VITALS (12 sets, daily range): BP systolic 111–152; BP diastolic 69–96
[~2021-04-07] VITALS: Ht 157.5 cm; Wt 60.0 kg
[~2021-04-07 16:43] MED LIST changes: -QUET50TA3 PO; +QUET50TA4 PO
[2021-04-07] MEDS ORDERED: DOPamine 400 MG/500 ML BAG IN D5W (800MCG/ML) (J1265) As Ordered ONE (16:45)
[2021-04-07 17:23] LABS: ABG BASE EXCESS -24.4 (-2.0-2.0); ABG HCO3 10.9 MEQ/L (22.0-26.0); ABG O2 SATURATION 93.1 % (95.0-99.0); ABG PARTIAL PRESSURE O2 110.8 mmHg (75.0-100.0); ABG STANDARD HCO3 7.8 MEQ/L (22.0-26.0)
[2021-04-07 17:24] LABS: ABG PARTIAL PRESSURE CO2 69.7 mmHg (35.0-45.0); ABG pH (ARTERIAL) 6.812 UNITS (7.350-7.450)
[2021-04-07] MEDS ORDERED: SODIUM BICARBONATE 8.4% INJ 50 ML SYRINGE IV STA ×2 (17:49→18:08)
[2021-04-07] MEDS ORDERED: NOREPINEPHRINE BITARTRATE 8 MG in D5W 492 ML IV SCH ×2 (18:00→18:10)
[2021-04-07 18:30] LABS: HEMATOCRIT 48.9 % (36.0-47.0); MEAN CORPUSCULAR HGB CONC 30.7 g/dl (32.0-36.5); PLATELET COUNT, AUTOMATED 178 10^3/uL (150-450); RED BLOOD COUNT 4.84 10^6/uL (4.00-5.40)
[2021-04-07 18:45] LABS: INR 3.46; PROTHROMBIN TIME 35.1 SECONDS (12.7-14.5)
[2021-04-07 18:46] LABS: PARTIAL THROMBOPLASTIN TIME 63.3 SECONDS (25.9-37.0)
[2021-04-07 18:49] LABS: MB/CK RELATIVE INDEX 3.38 (< OR =4)
[2021-04-07 18:55] LABS: ATYPICAL LYMPH 3 % (0-5); LYMPHOCYTES 2 % (16-44); MONOCYTES 1 % (0-5); NEUTROPHILS 90 % (28-66)
[2021-04-07 18:56] LABS: PLATELET ESTIMATE NORMAL (NORMAL)
[2021-04-07 19:19] LABS: ALBUMIN 1.9 GM/DL (3.2-5.2); ALT/SGPT 34 U/L (12-78); BILIRUBIN,DIRECT 0.3 MG/DL (0.0-0.2); BILIRUBIN,TOTAL 0.3 MG/DL (0.2-1.0); BLOOD UREA NITROGEN 35 MG/DL (7-18); CALCIUM LEVEL 8.5 MG/DL (8.8-10.2); CARBON DIOXIDE LEVEL 18 MEQ/L (21-32); CHLORIDE LEVEL 108 MEQ/L (98-107); CREATININE FOR GFR 2.27 MG/DL (0.55-1.30); GLOMERULAR FILTRATION RATE 22.7 (>45); GLUCOSE, FASTING 205 MG/DL (70-100); LIPASE 198 U/L (73-393); MAGNESIUM LEVEL 2.1 MG/DL (1.8-2.4); NT-PRO BNP 55905 PG/ML (<125); SODIUM LEVEL 138 MEQ/L (136-145); TOTAL PROTEIN 5.5 GM/DL (6.4-8.2)
[2021-04-07 19:20] LABS: ETHYL ALCOHOL (ETHANOL) < 0.003 % (0.000-0.010); FREE T4 0.91 NG/DL (0.76-1.46)
[2021-04-07] MEDS ORDERED: METAL LOCK LOOP XX ONE (19:31)
[2021-04-07] MEDS ORDERED: DOBUTamine HCL 500,000 MCG in IV 1 EA IV SCH (19:35)
[2021-04-07] MEDS ORDERED: FUROSEMIDE 100MG/10ML VIAL (J1940) IV ONE (19:35)
[2021-04-07] MEDS: IPRATROPIUM 0.5MG/ALBUTEROL 2.5MG INH SOL UD 3ML (DUONEB) NEB SCH ×2 (20:00→23:44)
[2021-04-07] MEDS: CHLORHEXIDINE GLUCONATE 0.12 % 15ML UDC (PERIDEX ORAL RINSE) MT SCH (20:09)
[2021-04-07] MEDS ORDERED: SUCCINYLCHOLINE INJ 200 MG/10 ML VIAL (J0330) IV ONE (20:30)
[2021-04-07] MEDS: PANTOPRAZOLE 40MG VIAL (C9113 PER 1) IV SCH (20:52)
[2021-04-07] MEDS: MIDAZOLAM INJ 2MG/2ML VIAL (J2250 PER 1MG) IV PRN ×2 (20:53→23:33)
[2021-04-07] MEDS ORDERED: cefTRIAXone SOD 2 GM in D5W MINI-BAG PLUS 50 ML IV SCH (21:00)
[2021-04-07 21:52] LABS: RSV AMPLIFICATION NEGATIVE (NEGATIVE)
[2021-04-07 22:21] LABS: ABG BASE EXCESS -10.6 (-2.0-2.0); ABG HCO3 16.4 MEQ/L (22.0-26.0); ABG O2 SATURATION 98.6 % (95.0-99.0); ABG PARTIAL PRESSURE O2 123.9 mmHg (75.0-100.0); ABG STANDARD HCO3 16.4 MEQ/L (22.0-26.0); ABG TOTAL CO2 17.7 MEQ/L (23.0-31.0)
[2021-04-07 22:25] LABS: ABG PARTIAL PRESSURE CO2 40.6 mmHg (35.0-45.0); ABG pH (ARTERIAL) 7.225 UNITS (7.350-7.450)
[2021-04-08] VITALS (42 sets, daily range): BP systolic 113–176; BP diastolic 71–106
[2021-04-08] MEDS: MIDAZOLAM INJ 2MG/2ML VIAL (J2250 PER 1MG) IV PRN ×6 (00:31→17:21)
[2021-04-08 01:00] LABS: MB/CK RELATIVE INDEX 4.57 (< OR =4)
[2021-04-08 01:28] LABS: ABG BASE EXCESS -11.1 (-2.0-2.0); ABG HCO3 14.3 MEQ/L (22.0-26.0); ABG O2 SATURATION 94.8 % (95.0-99.0); ABG PARTIAL PRESSURE CO2 31.6 mmHg (35.0-45.0); ABG STANDARD HCO3 15.9 MEQ/L (22.0-26.0); ABG TOTAL CO2 15.3 MEQ/L (23.0-31.0); ABG pH (ARTERIAL) 7.275 UNITS (7.350-7.450)
[2021-04-08] MEDS: IPRATROPIUM 0.5MG/ALBUTEROL 2.5MG INH SOL UD 3ML (DUONEB) NEB SCH ×4 (04:16→15:45)
[2021-04-08 04:43] LABS: BASO % 0.2 % (0.0-1.0); HEMATOCRIT 47.8 % (36.0-47.0); HEMOGLOBIN 15.3 g/dl (12.0-15.5); LYMPH # 0.3 10^3/uL (1.5-5.0); LYMPH % 1.6 % (24.0-44.0); MEAN CORPUSCULAR HEMOGLOBIN 30.4 pg (27.0-33.0); MEAN CORPUSCULAR VOLUME 94.8 fl (80.0-96.0); MONO # 0.8 10^3/uL (0.0-0.8); MONO % 4.8 % (2.0-8.0); NEUTROPHILS # 14.7 10^3/uL (1.5-8.5); NEUTROPHILS % 92.7 % (36.0-66.0); PLATELET COUNT, AUTOMATED 174 10^3/uL (150-450); RED BLOOD COUNT 5.04 10^6/uL (4.00-5.40); WHITE BLOOD COUNT 15.8 10^3/uL (4.0-10.0)
[2021-04-08 05:11] LABS: BILIRUBIN,TOTAL 0.5 MG/DL (0.2-1.0); CALCIUM LEVEL 8.2 MG/DL (8.8-10.2); CREATININE FOR GFR 2.37 MG/DL (0.55-1.30); GLOMERULAR FILTRATION RATE 21.6 (>45); POTASSIUM SERUM 4.5 MEQ/L (3.5-5.1); TOTAL PROTEIN 5.8 GM/DL (6.4-8.2)
[2021-04-08] MEDS ORDERED: FUROSEMIDE 100MG/10ML VIAL (J1940) IV ONE (05:50)
[2021-04-08 06:04] LABS: ABG BASE EXCESS -7.7 (-2.0-2.0); ABG HCO3 15.8 MEQ/L (22.0-26.0); ABG O2 SATURATION 99.7 % (95.0-99.0); ABG PARTIAL PRESSURE CO2 27.9 mmHg (35.0-45.0); ABG PARTIAL PRESSURE O2 245.9 mmHg (75.0-100.0); ABG STANDARD HCO3 18.4 MEQ/L (22.0-26.0); ABG TOTAL CO2 16.7 MEQ/L (23.0-31.0); ABG pH (ARTERIAL) 7.371 UNITS (7.350-7.450)
[2021-04-08] MEDS: PANTOPRAZOLE 40MG VIAL (C9113 PER 1) IV SCH (08:20)
[2021-04-08] MEDS: CHLORHEXIDINE GLUCONATE 0.12 % 15ML UDC (PERIDEX ORAL RINSE) MT SCH (08:20)
[2021-04-08] MEDS ORDERED: PIPERACILLIN/TAZOBACTAM SOD 2.25 GM in D5W MINI-BAG PLUS 50 ML IV SCH (09:00)
[2021-04-08] MEDS ORDERED: LOVA40TA PO (10:10)
[2021-04-08] MEDS ORDERED: OS-CTAB3 PO (10:10)
[2021-04-08] MEDS ORDERED: ACET500T15 PO (10:10)
[2021-04-08] MEDS ORDERED: POTA10CA32 PO (10:10)
[2021-04-08] MEDS ORDERED: COMB0.2S OU (10:10)
[2021-04-08] MEDS ORDERED: ENTR1TAB PO (10:10)
[2021-04-08] MEDS ORDERED: TREL1AER INH (10:10)
[2021-04-08] MEDS ORDERED: XARE15TA PO (10:10)
[2021-04-08] MEDS ORDERED: PANT-23 PO (10:10)
[2021-04-08] MEDS ORDERED: TORS20TA2 PO (10:10)
[2021-04-08] MEDS ORDERED: DONE5TAB82 PO (10:10)
[2021-04-08] MEDS ORDERED: HOME MED LIST COMPLETE! XX SCH (10:15)
[2021-04-08] MEDS ORDERED: ACETAMINOPHEN 325 MG/10.15 ML UDC GT PRN (14:45)
[2021-04-08] MEDS ORDERED: MORPHINE 2 MG/ML 1ML VIAL (J2270) IV PRN (17:05)
[2021-04-08] MEDS ORDERED: LORazepam 2 MG/ML VIAL IV PRN (17:05)
[2021-04-08] MEDS ORDERED: MORPHINE 2 MG/ML 1ML VIAL (J2270) As Ordered ONE (17:07)
== END 2021-04-08 20:50 | disposition expired ==
LOC: M ED 16:43 → M ED INP 19:34 → M PCU 21:22
PROVIDERS: ADMIT Internal Medicine Pulmonary Disease; ATTEND Internal Medicine Pulmonary Disease
PROC: 0BH17EZ Insertion of Endotracheal Airway into Trachea, Via Natural or Artificial Opening (ICD-10-PCS; principal; 2021-04-07)
PROC: 5A1935Z Respiratory Ventilation, Less than 24 Consecutive Hours (ICD-10-PCS; 2021-04-07)
PROC: 06HM33Z Insertion of Infusion Device into Right Femoral Vein, Percutaneous Approach (ICD-10-PCS; 2021-04-07)
DX: I46.9 Cardiac arrest, cause unspecified (principal); I21.4 Non-ST elevation (NSTEMI) myocardial infarction; A41.9 Sepsis, unspecified organism; R65.21 Severe sepsis with septic shock; J69.0 Pneumonitis due to inhalation of food and vomit; G93.40 Encephalopathy, unspecified; N17.9 Acute kidney failure, unspecified; E87.4 Mixed disorder of acid-base balance; I50.9 Heart failure, unspecified; I25.10 Atherosclerotic heart disease of native coronary artery without angina pectoris; Z95.2 Presence of prosthetic heart valve; I48.91 Unspecified atrial fibrillation; Z79.01 Long term (current) use of anticoagulants; N18.9 Chronic kidney disease, unspecified; J44.9 Chronic obstructive pulmonary disease, unspecified; Z91.14 Patient's other noncompliance with medication regimen; Z66 Do not resuscitate; Z91.19 Patient's noncompliance with other medical treatment and regimen; K21.9 Gastro-esophageal reflux disease without esophagitis; E78.5 Hyperlipidemia, unspecified; D64.9 Anemia, unspecified; F10.10 Alcohol abuse, uncomplicated; F17.210 Nicotine dependence, cigarettes, uncomplicated; Z90.49 Acquired absence of other specified parts of digestive tract; F03.90 Unspecified dementia, unspecified severity, without behavioral disturbance, psychotic disturbance, mood disturbance, and anxiety; Z79.899 Other long term (current) drug therapy; T68.XXXA Hypothermia, initial encounter; R57.0 Cardiogenic shock; Z20.822 Contact with and (suspected) exposure to COVID-19